=== PATIENT | female | born 1935 | race Caucasian/White ===

== ENCOUNTER 2025-01-12 09:20 | Outpatient (CLI) | payer MEDICARE, BC | END 2025-01-12 09:21 | disposition home or self-care (01) | LOC: CSHWCC 09:20 | PROVIDERS: ATTEND Nurse Practitioner Family | DX: T21.21XD Burn of second degree of chest wall, subsequent encounter (principal); E11.622 Type 2 diabetes mellitus with other skin ulcer; L98.499 Non-pressure chronic ulcer of skin of other sites with unspecified severity; C50.912 Malignant neoplasm of unspecified site of left female breast; L59.8 Other specified disorders of the skin and subcutaneous tissue related to radiation; Z85.828 Personal history of other malignant neoplasm of skin | CPT/HCPCS: 99213; G0463 ==

== ENCOUNTER 2025-01-19 08:23 | Outpatient (CLI) | payer MEDICARE, BC | END 2025-01-19 08:24 | disposition home or self-care (01) | LOC: CSHWCC 08:23 | PROVIDERS: ATTEND Nurse Practitioner Family | DX: T21.21XD Burn of second degree of chest wall, subsequent encounter (principal); E11.622 Type 2 diabetes mellitus with other skin ulcer; L98.499 Non-pressure chronic ulcer of skin of other sites with unspecified severity; C50.912 Malignant neoplasm of unspecified site of left female breast; L59.8 Other specified disorders of the skin and subcutaneous tissue related to radiation; Z85.828 Personal history of other malignant neoplasm of skin | CPT/HCPCS: 99213; G0463 ==